=== PATIENT | female | born 1990 | race Caucasian/White ===

== ENCOUNTER → 2016-10-16 | Outpatient (CLI) | payer OTHER ==
[2016-03-15 19:26] VITALS: BP 129/79
[~2016-10-16] MED LIST: HYDR-971 PO; SULF1TAB24 PO
[2016-10-16 12:29] LABS: BASO # 0.1 x10^3/uL (0.0-0.2); BASO % 1 % (0-3); EOS % 0 % (0-3); HEMATOCRIT 43.8 % (36.0-47.0); HEMOGLOBIN 14.5 g/dL (12.0-15.5); LYMPH # 2.5 x10^3/uL (1.0-4.8); LYMPH % 21 % (24-48); MEAN CORPUSCULAR HEMOGLOBIN 28 pg (25-35); MEAN CORPUSCULAR HGB CONC 33 g/dL (31-37); MEAN CORPUSCULAR VOLUME 85 fL (79-100); MONO % 6 % (0-9); NEUT % 72 % (31-73); PLATELET COUNT 324 x10^3/uL (140-400); RED BLOOD COUNT 5.16 x10^6/uL (3.50-5.40); RED CELL DISTRIBUTION WIDTH 12.7 % (11.5-14.5); WHITE BLOOD COUNT 11.9 x10^3/uL (4.0-11.0)
[2016-10-16 12:44] LABS: ALBUMIN 3.9 g/dL (3.4-5.0); ALBUMIN/GLOBULIN RATIO 1.1 (1.0-1.7); CALCIUM 9.4 mg/dL (8.5-10.1); CREATININE 0.9 mg/dL (0.6-1.0); GFR 76.3; POTASSIUM 3.6 mmol/L (3.5-5.1); TOTAL BILIRUBIN 0.5 mg/dL (0.2-1.0); TOTAL PROTEIN 7.6 g/dL (6.4-8.2)
[2016-10-16 13:30] LABS: BARBITURATES NEG (NEG); BENZODIAZEPINES NEG (NEG); CANNABINOIDS NEG (NEG); COCAINE NEG (NEG); METHADONE NEG (NEG); OPIATES NEG (NEG)
[2016-10-16 13:38] LABS: PHENCYCLIDINE NEG (NEG)
[2016-10-16 13:39] LABS: ETHANOL, URINE NEG (NEG)
--- NOTE | 2016-10-19 01:19 | EEG ---
DATE OF SERVICE: 10/16/2016 EEG NUMBER: [id number] OBJECTIVE: This is a 25-year-old female patient with history of seizure or seizure-like episodes. EEG was requested to evaluate seizure activity. METHOD: 20 electrodes were applied according to the International 10-20 electrode placement system. EKG monitoring, hyperventilation, intermittent photic stimulation, monopolar and bipolar montages are routinely utilized. The record was obtained on a digital system with video monitoring. MEDICATIONS: No anti-seizure medications. FINDINGS: 1. Background: The patient was recorded in the awake and drowsy states. No actual sleep state was recorded. The overall background amplitude is 10-30 microvolts. A posterior dominant rhythm of 8-10 Hz is observed. 2. Abnormalities: No specific epileptiform discharge or electrographic seizure is seen. No focal or diffuse slowing. 3. Activation: Hyperventilation was performed with good efforts and normal response. Intermittent photic stimulation was performed with photic driving. No specific epileptiform discharge or electrographic seizure induced by hyperventilation or intermittent photic stimulation. IMPRESSION: This EEG is a normal study for the awake and drowsy states. No sleep state was recorded. No focal, lateralizing, specific epileptiform discharge, or electrographic seizure is seen, however, a normal EEG does not rule out seizure. IZABELLA CARTER MD DR: Frankie JOB#: [id number] / [id number] TIFFANY
== END | disposition home or self-care (01) ==
LOC: LAB 11:54
PROVIDERS: ATTEND Psychiatry & Neurology Neurology
DX: R56.9 Unspecified convulsions (principal)
CPT/HCPCS: 36415; 80053; 84443; 85027; 95816; G0481

== ENCOUNTER → 2016-11-06 | Outpatient (CLI) | payer OTHER ==
[2016-03-15 19:26] VITALS: BP 129/79
--- NOTE | 2016-11-15 18:22 | EEG ---
DATE OF SERVICE: 11/15/2016 EEG DATE: 11/06/2016 to 11/07/2016. EEG NUMBER: [id number]. OBJECTIVE: This is a 26-year-old female patient with history of seizure. EEG was requested to evaluate seizure activity. METHOD: Twenty electrodes were applied according to the international 10-20 electrode placement system. EKG monitoring, hyperventilation, intermittent photic stimulation, monopolar and bipolar montage are routinely utilized. The record was obtained on a digital system with video monitoring. This is a long-term video EEG study with a total video monitoring and EEG recording time of 24 hours and 28 minutes from 11/06/2016 to 11/07/2016. FINDINGS: 1. Background: The patient was recorded in the awake, drowsy, and sleep states. The overall background amplitude is 20-40 microvolts. A posterior dominant rhythm of 9-10 Hz is observed. 2. Abnormalities: No specific epileptiform or electrographic seizure is seen. No focal or diffuse slowing. 3. Activation: Hyperventilation was performed with fair efforts and normal response. Intermittent Photic stimulation was performed with photic driving. No specific epileptiform discharge or electrographic seizure induced by hyperventilation or intermittent photic stimulation. IMPRESSION: This is a long-term video EEG study with total video monitoring and EEG recording time of 24 hours and 28 minutes from 11/06/2016 to 11/07/2016. This long-term video EEG study is a normal study for the awake, drowsy, and sleep states. No focal, lateralizing, specific epileptiform discharge, or electrographic seizure is seen. IZABELLA CARTER MD DR: TOSHIA/shivam JOB#: [id number] / [id number] TIFFANY
== END | disposition home or self-care (01) ==
LOC: SLPLAB 05:40
PROVIDERS: ATTEND Psychiatry & Neurology Neurology
DX: R56.9 Unspecified convulsions (principal)
CPT/HCPCS: 95951